=== PATIENT | male | born 1995 | race Caucasian/White ===

== ENCOUNTER 2016-12-10 02:32 | Emergency (ER) | payer SELFPAY ==
[~2016-12-10] VITALS: Ht 182.9 cm; Wt 89.5 kg
[2016-12-10] MEDS ORDERED: CEFTRIAXONE 250 MG IM ONE (03:30)
[2016-12-10] MEDS ORDERED: AZITHROMYCIN 500 MG TABLET PO ONE (03:30)
[2016-12-10] MEDS ORDERED: AZITHROMYCIN 500 MG TABLET ONE (03:33)
[2016-12-10] MEDS ORDERED: CEFTRIAXONE 250 MG ONE (03:33)
[2016-12-10] MEDS ORDERED: LIDOCAINE 1%, 20ML ONE (03:33)
[2016-12-10 04:47] VITALS: BP 157/87
== END 2016-12-10 04:49 | disposition home or self-care (01) ==
LOC: ED 04:43
DX: Z20.2 Contact with and (suspected) exposure to infections with a predominantly sexual mode of transmission (principal)
CPT/HCPCS: 96372; 99283; J0696